=== PATIENT | female | born 1970 | race African-American/Black ===

== ENCOUNTER 2019-12-26 09:03 | Emergency (ER) | payer BC, SELFPAY ==
[2019-12-26 09:13] VITALS: BP 130/91; PULSE 75; RESP 18; TEMP 36.9; O2SAT 97
--- NOTE | 2019-12-26 09:32 | ED.DENTAL ---
HPI - Dental/Oral General Chief complaint: Dental/Oral Stated complaint: tooth pain Time Seen by Provider: 12/26/19 09:14 Source: patient Mode of arrival: ambulatory Limitations: no limitations History of Present Illness HPI Narrative: Patient is a 49-year-old female who presents for evaluation of tooth pain. Patient reports a 3 to 4-year history of prior dental disease, numerous decaying teeth and issues with cavities. She does not follow regularly with a dentist. Patient reports incisor pain and abscess about tooth 6, as well as pain about molar 18. Patient denies any facial swelling, difficulty swallowing. There is pain with chewing. No fever. No ear pain, neck pain. Pain is dull, aching in nature. No drainage from the teeth at this point. Patient is currently taking Tylenol without much improvement in her symptoms. She states she washes her mouth with peroxide but does not do any other treatments. Related Data Allergies Allergy/AdvReac Type Severity Reaction Status Date / Time No Known Allergies Allergy Verified 12/26/19 09:31 Review of Systems Review of Systems: Narrative: CONSTITUTIONAL: Denies fever CARDIOVASCULAR: Denies chest pain RESPIRATORY: Denies cough or dyspnea. GASTROINTESTINAL: Denies abdominal pain SKIN: Denies rash MUSCULOSKELETAL: Denies back pain NEUROLOGIC: Denies headache PMFSH Past Medical History Medical History (Updated 12/26/19 @ 13:13 by Amber Latif MD) Hyperlipidemia Hypertension Surgical History Surgical History (Updated 12/26/19 @ 13:13 by Amber Latif MD) H/O section Hx of cholecystectomy Social History Social History (Updated 12/26/19 @ 13:13 by Amber Latif MD) Smoking status: Never smoker Alcohol intake: never Substance use: never Living arrangements: with family Gender identity (if verbalized by the patient): Female Exam Narrative: Exam Narrative: GENERAL: Awake, alert, conversant HEAD: Normocephalic, atraumatic. EYES: PERRLA and EOMI. ENT: Nares clear, no rhinorrhea or epistaxis. Mucous membranes moist. No trismus. Incisors 6 with abstinence identifying. No dental fracture. Uvula is midline. Molar 18 is tender to palpation, no abscess identified. No facial swelling or erythema NECK: Supple. CHEST: No respiratory distress, breathing even and non labored HEART: Regular rate, sinus rhythm ABDOMEN:Non distended, non tender EXTREMITIES: Normal range of motion. No edema. SKIN: Warm, dry, no rash. NEURO:No focal deficits. Alert and oriented x3 Course Vital Signs Vital signs: Vital Signs Temperature 36.9 C 12/26/19 09:13 Pulse Rate 75 12/26/19 09:13 Respiratory Rate 18 12/26/19 09:13 Blood Pressure 130/91 H 12/26/19 09:13 Pulse Oximetry 97 12/26/19 09:13 Temperature 36.9 C 12/26/19 09:13 Pulse Rate 75 12/26/19 09:13 Respiratory Rate 18 12/26/19 09:13 Blood Pressure 130/91 H 12/26/19 09:13 Pulse Oximetry 97 12/26/19 09:13 Procedures Abscess I/D oral: Date of Incision: 12/26/19 Time of Incision: 09:36 Side (if applicable): right Local Anesthetic: lidocaine 1% Amount of anesthesia used (mL): 4 Technique: needle aspiration Amount of fluid expressed (mL): 2 Irrigation: No Packing used?: none I&D Results: Pus Nerve Block Nerve Block 1: Nerve block date: 12/26/19 Nerve block time: 09:36 Time out performed: Yes Local Anesthetic: lidocaine 1% Amount of anesthesia used (mL): 4 Side: right Intraoral Nerve Block: infraorbital Procedure Successful: Yes Patient Tolerated Procedure: well Complications: none MDM - Dental/Oral MDM Narrative Medical decision making narrative: Patient presenting for evaluation of dental pain that is very chronic. Patient's pain is consistent with dental caries. At the time of assessment there are no signs of systemic illness, no foca
== END 2019-12-26 09:59 | disposition home or self-care (01) ==
PROVIDERS: Emergency Provider Emergency Medicine
DX: K04.7 Periapical abscess without sinus (principal); E78.5 Hyperlipidemia, unspecified; I10 Essential (primary) hypertension
CPT/HCPCS: 41800; 99283; A9270